=== PATIENT | female | born 1985 | race Caucasian/White ===

== ENCOUNTER 2018-09-28 17:31 | Emergency (ER) | payer OTHER ==
--- NOTE | 2018-09-28 18:07 | EDPHY ---
H & P Stated Complaint: anxiety Time Seen by Provider: 09/28/18 17:34 HPI/ROS: CHIEF COMPLAINT: Chest pain, shortness of breath HISTORY OF PRESENT ILLNESS: 32-year-old female presents with chest pain and shortness of breath. She went on an alcohol binge 2 nights ago. She was sitting watching TV the next day, when she had sudden onset of a panicky feeling , associated with hyperventilation and tachycardia. Similar to prior episodes of panic attacks. The symptoms gradually resolved. However, yesterday evening she had a few episodes of stabbing pain in left chest, associated with difficulty breathing. The pain increases with deep inspiration and with movement. The lasted approximately 3-4 minutes. No pain today. Cardiac risk factors negative. Nonsmoker; no family history; no hypertension, diabetes or hypercholesterolemia. REVIEW OF SYSTEMS: complete 10 point ROS reviewed and is negative except for the noted elements in the HPI - Personal History LMP (Females 10-55): Extended Cycle BCP/Inj Current Tetanus/Diphtheria Vaccine: Unsure Current Tetanus Diphtheria and Acellular Pertussis (TDAP): Unsure - Medical/Surgical History Hx Asthma: No Hx Chronic Respiratory Disease: No Hx Diabetes: No Hx Cardiac Disease: No Hx Renal Disease: No Hx Cirrhosis: No Hx Alcoholism: No Hx HIV/AIDS: No Hx Splenectomy or Spleen Trauma: No Other PMH: Migraines, ovarian cysts, breast augmentation - Social History Smoking Status: Never smoked - Physical Exam Exam: General Appearance: Alert, pleasant Eyes: Pupils equal and round, no conjunctival pallor or injection ENT, Mouth: Mucous membranes moist Neck: Normal inspection Respiratory: No chest wall tenderness, Lungs are clear to auscultation Cardiovascular: Regular rate and rhythm Gastrointestinal: Abdomen is soft and nontender Neurological: A&O, nonfocal, normal gait Skin: Warm and dry, no rash Extremities: Nontender, no pedal edema Psychiatric: Mood and affect normal Constitutional: Initial Vital Signs Temperature (C) 37.3 C 09/28/18 17:37 Heart Rate 85 09/28/18 17:37 Respiratory Rate 16 09/28/18 17:37 Blood Pressure 151/86 H 09/28/18 17:37 O2 Sat (%) 97 09/28/18 17:37 O2 Delivery Mode Room Air Allergies/Adverse Reactions: acetaminophen [From Percocet] Allergy (Verified 09/28/18 17:37) oxycodone [From Percocet] Allergy (Verified 09/28/18 17:37) Home Medications: Medication Instructions Recorded IMITREX 12/12/14 Nexplanon 09/28/18 Medical Decision Making - Diagnostics EKG Interpretation: EKG interpreted by me reveals normal sinus rhythm, rate 73, low voltage, no ST or T segment changes. Interpretation: Otherwise normal EKG. Imaging Results: Imaging Impressions Chest X-Ray 09/28/18 18:04 Impression: No acute pulmonary disease. Imaging: I viewed and interpreted images myself ED Course/Re-evaluation: This patient presents with atypical chest pain. After careful consideration and evaluation, I find no evidence of acute coronary syndrome. The patient has no risk factors for coronary disease and normal EKG. I do not feel that additional ED testing is indicated. In addition, I feel that I can safely exclude pulmonary embolism, with normal vital signs, normal oxygen saturation, no risk factors and no symptoms today. PERC score 1. In addition there is no evidence of pneumothorax, pneumonia, aortic dissection. Differential Diagnosis: Differential diagnosis includes though it is not limited to pneumonia, pneumothorax, pulmonary embolism, aortic dissection, pericarditis, acute coronary syndrome. - Data Points Laboratory Results: 09/28/18 17:50 POC Troponin I 0.00 ng/mL ng/mL (0.00-0.08) Point of Care Test Results: Chemistry 09/28/18 17:50 POC Troponin I 0.00 ng/mL ng/mL (0.00-0.08) Urine Collection Date 09/28/18 Collection Time 18:24 HCG Results Negative Departure - Departure Disposition: Home, Routine, Self-Care Clinical Impression: Chest pain Qualifiers: Chest pain type: intercostal pain Qualified Code(s): R07.82 - Intercostal pain Condition: Good Instructions: Chest Pain (ED) Additional Instructions: Return for worsening symptoms or other concerns. Referrals: Jerica Watt MD [Primary Care Provider] - As per Instructions
[2018-09-28 18:54] VITALS: BP 116/91
--- NOTE | 2018-09-28 20:53 | CPEKG ---
Test Reason : OPEN Blood Pressure : / mmHG Vent. Rate : 073 BPM Atrial Rate : 072 BPM P-R Int : 143 ms QRS Dur : 087 ms QT Int : 413 ms P-R-T Axes : 054 014 023 degrees QTc Int : 456 ms Sinus rhythm Low voltage, precordial leads Confirmed by Jeaneth Royal ([id number]) on 09/28/2018 8:53:12 PM Referred By: Confirmed By:Jeaneth Royal
== END 2018-09-28 18:57 | disposition home or self-care (01) ==
DX: R06.02 Shortness of breath (principal); R07.9 Chest pain, unspecified
CPT/HCPCS: 84484-PO

== ENCOUNTER → 2019-02-18 | Outpatient (CLI) | payer OTHER | LOC: FIMAGING 18:47 | PROVIDERS: ATTEND Family Medicine | DX: G44.52 New daily persistent headache (NDPH) (principal) | CPT/HCPCS: 70551-PN ==